=== PATIENT | female | born 1965 | race Caucasian/White ===

== ENCOUNTER 2019-11-05 12:17 | Outpatient (CLI) | payer BC, SELFPAY ==
--- NOTE | ~2019-11-05 | CT_ITS ---
EXAMINATION: CT lung screening DATE: 11/05/2019 12:52 INDICATION: Personal history of tobacco dependence, current smoker with 37 pack year history TECHNIQUE: Computed tomography (CT) of the chest was performed without intravenous contrast. The dose -length product (DLP) was 239.33 mGy-cm. Automated exposure control and iterative reconstruction tech [employer] were employed. COMPARISON: None FINDINGS: There is a 2 mm nodule of the right middle lobe on image 50. There is a 5 mm nodule of the right lower lobe on image 74. The lungs are free of focal airspace opacities. There is no pleural eff usion or pneumothorax. No pathologically enlarged thoracic lymph nodes are identified. The heart size is normal. There is mild emphysema. There is moderate thoracic spondylosis. IMPRESSION: 1. Lung-RADS category 2: Benign appearance or behavior. Continue annual screening with noncontrast lo w-dose chest CT in 12 months. Reviewed, dictated and finalized at location A. IMPRESSION: 1. Lung-RADS category 2: Benign appearance or behavior. Continue annual screeni ng with noncontrast low-dose chest CT in 12 months.
== END 2019-11-05 12:18 | disposition home or self-care (01) ==
LOC: CHSIMG 12:19
PROVIDERS: PCP Internal Medicine; Visit Provider Internal Medicine
DX: Z12.2 Encounter for screening for malignant neoplasm of respiratory organs (principal); Z87.891 Personal history of nicotine dependence
CPT/HCPCS: G0297

== ENCOUNTER 2019-11-22 00:17 | Outpatient (CLI) | payer BC, SELFPAY ==
[2019-11-22 17:01] LABS: SARS-CoV-2 RNA PCR Negative
== END 2019-11-22 00:18 | disposition home or self-care (01) ==
LOC: ANHCOVIDDT 00:17
PROVIDERS: PCP Internal Medicine; Visit Provider Surgery
DX: Z01.818 Encounter for other preprocedural examination (principal); Z11.59 Encounter for screening for other viral diseases
CPT/HCPCS: 87635; C9803; U0003

== ENCOUNTER 2019-11-24 01:24 | Day surgery (SDC) | payer BC, SELFPAY ==
[2019-11-17 10:58] VITALS: BMI 42.5
--- NOTE | 2019-11-24 08:39 | PM.HPGS ---
History of Present Illness History of Present Illness Consent: Risks, benefits, and alternatives of colonoscopy with possible biopsy or polypectomyhave been discussed and questions answered. Patient agrees to proceed with procedure. Chief complaint: Neoplasm Screening/ Hx Colon Polyps Narrative: Maxine Watson is a 54 year old femaleWith the patient of Dr. Abrams in [place]. She last had a colonoscopy in 2016 and was noted to a villous adenoma removed. It is time for repeat colonoscopy and he is asked her to do this periodically over the last year but she has refused. She was also offered a cold our tests a.m. not sure if this was performed or not. Will ask her today. Review of Systems Review of Systems: Narrative: Has had unintentional weight gain of about 40 lb over the last year Constitutional: Constitutional: Reports no additional constitutional complaints, Reports fatigue and Denies malaise Eyes: Eyes: Denies change in vision and Denies loss of vision ENT: Reports Normal hearing present, Denies change in voice, Denies dizziness, Denies hoarseness and Denies sore throat Cardiovascular: Cardiovascular: Denies chest pain, Denies leg edema and Denies dyspnea Comments: chronic hypertension on medications Respiratory: Respiratory: Denies cough, Denies dyspnea and Denies wheezing Gastrointestinal: Gastrointestinal: Denies hematochezia, Denies change in bowel habits, Denies change in stool character and Denies heartburn Comments: known history of previous colonic polyps last colonoscopy 2015. patient could not remember where in the colon the polyp was. She had her last colonoscopy in [place] [address] Orellana in 2016 and that was when a polyp was removed. Genitourinary: Genitourinary: Denies urinary frequency and Reports urinary incontinence ( mild dribbling postvoid) Comments: known microscopic hematuria Neurologic: Reports Normal hearing present, Denies confusion, Denies dizziness, Denies loss of vision, Denies memory loss and Denies seizure-like activity Comments: essential tremor Psychiatric: Psychiatric: Denies confusion, Denies depression and Denies memory loss Endocrine: Endocrine: Denies cold intolerance and Reports fatigue Comments: Disthymic disorder. vitamin-D deficiency impaired fasting glucose, pre diabetes Hematologic/Lymphatic: Hematologic/Lymphatic: Denies easy bleeding and Denies easy bruising Allergic/Immunologic: Allergic/Immunologic: Denies wheezing PMFSH Past Medical History Medical History (Updated 11/24/19 @ 11:07 by Kingsley Robins MD) Anxiety HTN (hypertension) Morbid obesity (Unknown) Personal history of colonic polyps (~2016) Surgical History Surgical History (Updated 11/24/19 @ 10:46 by Delroy Luke MD) Hx of tonsillectomy Social History Social History (Updated 11/24/19 @ 10:46 by Delroy Luke MD) Smoking status: Current every day smoker Meds Home Medications and Allergies Home Medications Medication Instructions Recorded Confirmed Type calcitriol 0.25 mcg/kg PO DAILY 11/17/19 11/17/19 History chlordiazepoxide HCl 25 mg PO Q4-6H PRN 11/17/19 11/17/19 History escitalopram oxalate 20 mg PO DAILY 11/17/19 11/17/19 History estradiol-norethindrone acet 1 tablet PO DAILY 11/17/19 11/17/19 History [Amabelz] lisinopril-hydrochlorothiazide 1 tablet PO DAILY 11/17/19 11/17/19 History naltrexone 1 mg PO DAILY 11/17/19 11/17/19 History omeprazole 40 mg PO DAILY 11/17/19 11/17/19 History valacyclovir 500 mg PO DAILY 11/17/19 11/17/19 History Allergies Allergy/AdvReac Type Severity Reaction Status Date / Time No Known Allergies Allergy Mild Unverified 11/24/19 10:18 Exam Narrative: Exam Narrative: 54-year-old morbidly obese white female Const: General: no acute distress Nutritional Appearance: well nourished Orientation/consciousness: patient oriented x3 and No confusion Limitations: no limitations HENMT: Head: normal to inspection, normocepha
[2019-11-24] MEDS: LACTATED RINGERS 1,000 ML 150 ML IV CONT (10:20)
--- NOTE | 2019-11-24 10:43 | WPDANESEPPF ---
Anes - Initial Pre Proc Eval Procedure: Operation Date: 11/24/19 12:30 Proposed Procedures p Screening Colonoscopy - Kingsley Robins MD Date/Time: 11/24/19 10:43 Surgeon: Kingsley Robins MD Pre Op Diagnosis: Neoplasm Screening/ Hx Colon Polyps Patient Data Age: 54 Gender: F Height: 5 ft 5 in Weight: 111.3 kg Allergies Allergy/AdvReac Type Severity Reaction Status Date / Time No Known Allergies Allergy Mild Unverified 11/24/19 10:18 Home Medications Medication Instructions Recorded Confirmed Type calcitriol 0.25 mcg/kg PO DAILY 11/17/19 11/17/19 History chlordiazepoxide HCl 25 mg PO Q4-6H PRN 11/17/19 11/17/19 History escitalopram oxalate 20 mg PO DAILY 11/17/19 11/17/19 History estradiol-norethindrone acet 1 tablet PO DAILY 11/17/19 11/17/19 History [Amabelz] lisinopril-hydrochlorothiazide 1 tablet PO DAILY 11/17/19 11/17/19 History naltrexone 1 mg PO DAILY 11/17/19 11/17/19 History omeprazole 40 mg PO DAILY 11/17/19 11/17/19 History valacyclovir 500 mg PO DAILY 11/17/19 11/17/19 History Patient hx anesthesia problems: none Family hx anesthesia problems: none [facility] Past Medical History Medical History (Updated 11/24/19 @ 10:46 by Delroy Luke MD) Anxiety HTN (hypertension) Morbid obesity Surgical History Surgical History (Updated 11/24/19 @ 10:46 by Delroy Luke MD) Hx of tonsillectomy Social History Social History (Updated 11/24/19 @ 10:46 by Delroy Luke MD) Smoking status: Current every day smoker Anes - Eval Final PreProcedure Day of Procedure 11/24/19 10:43 Patient weight: morbidly obese Heart: regular rate and rhythm Lungs: clear to auscultation Airway: Mallampati scale class II Neurological: alert and oriented Last oral intake: >/= 8 hours ASA classification: III Emergent: no Anesthetic plan: proceed Anesthesia type and monitoring: general GIVS and standard monitoring Informed Consent: The patient's anesthetic plan and its attendant risks and benefits were discussed with the patient/family/POA. Questions were solicited and answers provided to the satisfaction of the patient/family/POA.
[2019-11-24 14:23] VITALS: BP 138/91; PULSE 85; RESP 26; TEMP 37; O2SAT 100
[2019-11-24 14:33] VITALS: BP 148/71; PULSE 77; RESP 16; O2SAT 99
[2019-11-24 14:43] VITALS: BP 165/96; PULSE 77; RESP 18; O2SAT 100
[2019-11-24 14:53] VITALS: BP 162/90; PULSE 86; RESP 20; O2SAT 100
== END 2019-11-24 15:17 | disposition home or self-care (01) ==
PROVIDERS: PCP Internal Medicine; Visit Provider Surgery
PROC: 0DJD8ZZ Inspection of Lower Intestinal Tract, Via Natural or Artificial Opening Endoscopic (ICD-10-PCS; CPT 45378; principal; 2019-11-24 12:30)
DX: Z12.11 Encounter for screening for malignant neoplasm of colon (principal); K63.5 Polyp of colon; K64.8 Other hemorrhoids; I10 Essential (primary) hypertension; F41.9 Anxiety disorder, unspecified; E66.01 Morbid (severe) obesity due to excess calories; Z68.41 Body mass index [BMI] 40.0-44.9, adult; F17.200 Nicotine dependence, unspecified, uncomplicated
CPT/HCPCS: 45380; 88305; J2704; J7120

== ENCOUNTER 2019-12-03 11:30 | Outpatient (CLI) | payer BC, SELFPAY ==
--- NOTE | ~2019-12-03 | MM_ITS ---
EXAMINATION: MM screening catrina BI w skylar HISTORY: Screening mammogram TECHNIQUE: Craniocaudal and mediolateral oblique 3-D tomosynthesis images were obtained and synthetic 2-D images were generated. CAD analysis was submitted and interpreted. COMPARISON: 07/02/2018 diagnostic right digital mammogram and limited right breast ultrasound 04/23/2018, 04/03/2017 bilateral digital screening mammogram examinations BREAST PARENCHYMAL COMPOSITION: There are scattered areas of fibroglandular density. FINDINGS: There is a chronic stable obscured opacity in the lower mid right breast. Since 04/23/2018 there is a lower outer quadrant new approximately 5 mm opacity. Diagnostic right mammogram and right breast ultrasound examination are recommended. Otherwise there is no evidence of suspicious mass, calcification, or architectural distortion to sugg est malignancy in either breast. There has been no suspicious interval change. IMPRESSION: 1. New 5 mm opacity in the lower outer quadrant of right breast at mid depth 2. Diagnostic right mammogram and right breast ultrasound examination are recommended. BI-RADS Category 0: Incomplete: Needs additional imaging evaluation. Reviewed, dictated and finalized at location A. IMPRESSION: 1. New 5 mm opacity in the lower outer quadrant of right breast at mid depth 2. Diagnostic right mammogram and right breast ultrasound examination are recom mended. BI-RADS Category 0: Incomplete: Needs additional imaging evaluation.
== END 2019-12-03 11:31 | disposition home or self-care (01) ==
PROVIDERS: PCP Internal Medicine; Visit Provider Obstetrics & Gynecology
DX: Z12.31 Encounter for screening mammogram for malignant neoplasm of breast (principal)
CPT/HCPCS: 77063; 77067

== ENCOUNTER 2019-12-16 08:45 | Outpatient (CLI) | payer BC, SELFPAY ==
--- NOTE | ~2019-12-16 | MMUS_ITS ---
EXAMINATION: MM diagnostic catrina RT w skylar, US breast RT limited HISTORY: Right breast mass on screening mammogram TECHNIQUE: Additional 3-D tomosynthesis images of the right breast were performed and synthetic 2-D i mages were generated. Spot compression views are also obtained. CAD analysis was submitted and interp reted. High resolution limited right breast ultrasound was performed. COMPARISON: 12/03/2019, 07/02/2018, 04/23/2018, 04/03/2017 FINDINGS: MAMMOGRAPHIC FINDINGS: There is a 6 mm obscured, oval, equal density mass in the middle third of the breast 6 cm from the ni pple at the 7:00 location just anterior to a previously characterized mass. ULTRASOUND: There is a 6 mm x 4 mm oval, circumscribed, parallel, hypoechoic mass at the 7:00 location 2 cm from the nipple with no posterior features or internal vascularity corresponding to the mammographic findi ng in question. There appears to be subtle central echogenicity suggestive of an intramammary lymph n ode. When compared to the prior ultrasound, this appears to have been present but is slightly more pr ominent on the current examination than the comparison. Also seen is a stable 11 mm x 6 mm complex cy stic and solid mass at the 6:00 location 2 cm from the nipple with the appearance of clustered microc ysts. IMPRESSION: 1. Likely intramammary lymph node of the lower-outer right breast corresponding to the mammographic f inding in question. 2. Recommend 6 month follow-up right diagnostic mammogram and ultrasound. BI-RADS category 3, probably benign findings. Reviewed, dictated and finalized at location A. IMPRESSION: 1. Likely intramammary lymph node of the lower-outer right breast corresponding to the mammographic finding in question. 2. Recommend 6 month follow-up right diagnostic mammogram and ultrasound. BI-RADS category 3, probably benign findings.
== END 2019-12-16 08:46 | disposition home or self-care (01) ==
PROVIDERS: PCP Internal Medicine; Referring Provider Obstetrics & Gynecology; Visit Provider Internal Medicine
DX: R92.8 Other abnormal and inconclusive findings on diagnostic imaging of breast (principal)
CPT/HCPCS: 76642; 77061; 77065; G0279

== ENCOUNTER 2020-04-27 15:20 | Outpatient (CLI) | payer BC, SELFPAY ==
--- NOTE | ~2020-04-27 | XR_ITS ---
XR ankle LT min 3V DATE: 04/27/2020 15:42 INDICATION: Left ankle pain TECHNIQUE: 4 views COMPARISON: The 11/21/2011 left ankle radiographs are not available, but the available radiographic re port indicates oblique fracture of the distal fibular metaphysis FINDINGS: There is old fracture deformity of the distal fibula. There is osteoarthritic change including joint space narrowing and spurring at the tibiotalar joint. There is very prominent plantar and minimal posterior calcaneal enthesopathy. No periostitis or erosi ve change is noted. Pes planus. No recent fracture or dislocation. IMPRESSION: Old fracture deformity of the distal fibula Osteoarthritis at the tibiotalar joint Calcaneal enthesopathy Pes planus Reviewed, dictated and finalized at location B. BRUSHER MACHINE
== END 2020-04-27 15:21 | disposition home or self-care (01) ==
PROVIDERS: PCP Internal Medicine; Visit Provider Internal Medicine
DX: M25.572 Pain in left ankle and joints of left foot (principal)
CPT/HCPCS: 73610

== ENCOUNTER 2020-06-15 09:59 | Outpatient (CLI) | payer BC, SELFPAY ==
--- NOTE | ~2020-06-15 | CT_ITS ---
EXAMINATION: CT chest wo con DATE: 06/15/2020 10:33 INDICATION: Pulmonary nodule follow-up. Chronic shortness of breath and cough. Smoker. TECHNIQUE: Computed tomography (CT) of the chest was performed without intravenous contrast. Automate d exposure control and iterative reconstruction technique were employed. Exam dose: 190.55 mGy-cm to real exam DLP. COMPARISON: 11/05/2019 CT lung screening FINDINGS: Normal heart size. No pericardial or pleural effusion. No hilar or mediastinal mass lesion or lymphadenopathy. No thoracic aortic aneurysm. Stable 5-6 mm nodular density in the medial right lower lobe (series 4 image 70). No interval pulmonary mass lesion. No pulmonary infiltrate or consolidation. Minimal atelectasis in t he lower lung zones. Normal morphology of the adrenal glands. No suspicious osteolytic or osteoblastic lesions. Degenerative changes of the thoracic spine. IMPRESSION: Stable 5-6 mm right lower lobe nodular density since 11/05/[address] test follow-up Reviewed, dictated and finalized at Location A. Reviewed, dictated and finalized at location B. OLOGY TEACHER
== END 2020-06-15 10:00 | disposition home or self-care (01) ==
LOC: CHSIMG 10:01
PROVIDERS: PCP Internal Medicine; Visit Provider Internal Medicine
DX: R91.1 Solitary pulmonary nodule (principal)
CPT/HCPCS: 71250

== ENCOUNTER 2020-07-28 09:58 | Outpatient (CLI) | payer BC, SELFPAY ==
--- NOTE | ~2020-07-28 | MMUS_ITS ---
EXAMINATION: MM diagnostic catrina RT w skylar, US breast RT complete HISTORY: Follow-up right breast masses. TECHNIQUE: Additional 3-D tomosynthesis images of the right breast were performed and synthetic 2-D i mages were generated. CAD analysis was submitted and interpreted. High resolution complete right ketan st ultrasound was performed. COMPARISON: Comparison to multiple prior studies sequentially, with oldest reviewed study dated 01/30. BREAST PARENCHYMAL COMPOSITION: Breast composed of scattered areas of fibroglandular density. FINDINGS: MAMMOGRAPHIC FINDINGS: There are multiple small right breast masses, largest located in the lower outer quadrant of the righ t breast measuring 7 mm. No suspicious architectural distortion or abnormal cluster of calcifications . ULTRASOUND: Complete right breast ultrasound: There are multiple simple and complicated cysts of the right breast. There is a cluster of microcysts at 6:00, 2 cm from the nipple measuring 11 mm in aggregate. There is a 7 mm complicated cyst at 7:00 , 2 cm from the nipple, likely corresponding to the dominant mammographic mass. There is an oval hypo echoic mass at 9:00, 3 cm from the nipple with echogenic center, possibly an intramammary lymph node measuring 5 mm. There is an oval hypoechoic mass measuring 5 mm at 9:00, 3 cm from the nipple, most l ikely complicated cysts. At 11:00, 3 cm from the nipple, there is an oval hypoechoic mass with parall el orientation, no posterior features or internal vascularity measuring 8 mm, possibly cluster of ted rocyst IMPRESSION: 1. Probable benign right breast masses identified by ultrasound and mammogram. 2. Recommend 6 month follow-up diagnostic right mammogram and ultrasound. BI-RADS category 3, probably benign findings. Reviewed, dictated and finalized at location A. INE RADIO OPERATOR IMPRESSION: 1. Probable benign right breast masses identified by ultrasound and mammogram. 2. Recommend 6 month follow-up diagnostic right mammogram and ultrasound. BI-RADS category 3, probably benign findings.
== END 2020-07-28 09:59 | disposition home or self-care (01) ==
PROVIDERS: PCP Internal Medicine; Visit Provider Internal Medicine
DX: R92.8 Other abnormal and inconclusive findings on diagnostic imaging of breast (principal)
CPT/HCPCS: 76641; 77061; 77065; G0279

== ENCOUNTER 2020-08-24 13:07 | Outpatient (CLI) | payer BC, SELFPAY ==
--- NOTE | ~2020-08-24 | XR_ITS ---
EXAMINATION: XR lumbar spine 2-3V EXAM DATE: 08/24/2020 13:34 INDICATION: Low back pain, symptoms of months. TECHNIQUE: Lumber spine frontal, lateral, lateral L5-S1 projections for interpretation. Comparison is made to prior examination from 05/09/2007 MR. FINDINGS: Mild disc disease at L4-5, mild to moderate at the other lumbar levels. The vertebral juan j s are aligned in the AP dimension. Minimal thoracolumbar levoscoliosis. There is bulky mid and lower thoracic facet arthropathy. Small endplate osteophytes. Vertebral body heights relatively well-mainta ined. No endplate erosive change. Sacrum, sacroiliac joints, sacral arcuate lines are intact. Paraspi nal soft tissue is unremarkable. IMPRESSION: 1. Advanced lumbar facet arthropathy. 2. Mild to moderate disc disease. Reviewed, dictated and finalized at location A.
--- NOTE | ~2020-08-24 | XR_ITS ---
EXAMINATION: XR knee RT 3V DATE: 08/24/2020 13:35 INDICATION: Right knee pain. TECHNIQUE: 3 views of right knee were obtained. COMPARISON: None. FINDINGS: Bone alignment is normal. No fracture. There is mild osteoarthritis of medial and patellofe moral compartments characterized by tiny marginal osteophytes. No knee joint effusion. IMPRESSION: 1. Mild right knee osteoarthritis. Reviewed, dictated and finalized at location A.
== END 2020-08-24 13:08 | disposition home or self-care (01) ==
LOC: CHSIMG 13:08
PROVIDERS: PCP Internal Medicine; Visit Provider Nurse Practitioner Family
DX: M25.561 Pain in right knee (principal); M54.5 Low back pain
CPT/HCPCS: 72100; 73562

== ENCOUNTER 2020-09-07 14:13 | Outpatient (RCR) | payer BC, SELFPAY ==
--- NOTE | 2020-09-07 16:19 | PTOPEVAL ---
Thank you for referring Maxine Watson to [facility].? The patient is scheduled to be seen for therapy? __2__x/week for 12 visits. Please review, sign, date and return this plan of care JESI. I agree with and certify that the following plan of care is medically necessary. Referring Physician Date Admitting Provider: Attending Provider: Arlette Colby MD Referring Provider: Hardy Gayle DPM *PT Outpatient Evaluation Start: 09/07/20 14:58 Freq: Status: Active Protocol: Document 09/07/20 14:58 EMIL (Rec: 09/07/20 16:18 EMIL [email or web address]) Therapy Assessment Status Assessment Status Assessment Status Evaluation Outpatient Past Medical History Neurological History Hx Neurological Disorders No Significant History Cardiovascular History Hx Hypertension Yes Respiratory History Hx Chronic Obstructive Pulmonary Disease Yes (COPD) Gastrointestinal History Hx Polyps Yes Genitourinary History Hx Genitourinary Disorders No Significant History Musculoskeletal History Hx Orthopedic Surgery Yes: BACK SURGERY 2005 Hx Other Musculoskeletal Disorders Yes: JAW SURGERY WITH WIRES Hematological History Hx Hematological Disorders No Significant History Endocrine History Hx Endocrine Disorders No Significant History HEENT History Hx HEENT Disorders No Significant History Integumentary History Hx Skin Disorders No Significant History Reproductive History Hx Post Menopausal Yes Psychosocial History Hx Anxiety Yes Hx Depression Yes Pain History History of Any Previous or Ongoing No Significant History Instance of Pain Anesthesia History Hx Anesthesia Reactions No Significant History Evaluation Information Problem Diagnosis right posterior knee pain, plantar fascitis bilateral Onset 03/09/20 Subjective Information Pt. reports that she has been Query Text:As Reported By Patient/ experinecing bilateral foot Family pain since being taken off work in August of 2019. Pt. reports that that she had an injection in her feet in June which helped. She feels the injection is beginning to wear off and pain is returning. He states that she is also experiencing pain in the back of the knee. She reports that she had xray which revealed arthritis. She
== END 2020-10-06 16:41 | disposition home or self-care (01) ==
LOC: CHSPT 14:13
PROVIDERS: PCP Internal Medicine; Referring Provider Podiatrist; Visit Provider Internal Medicine
DX: M72.2 Plantar fascial fibromatosis (principal); M25.561 Pain in right knee
CPT/HCPCS: 97014; 97110; 97112; 97140; 97161; 97530; G0283

== ENCOUNTER 2021-03-31 13:24 | Outpatient (CLI) | payer BC, SELFPAY ==
[2021-03-31 14:39] LABS: SARS-CoV-2 RNA PCR Negative (Negative)
== END 2021-03-31 13:25 | disposition home or self-care (01) ==
LOC: CHSLAB 13:26
PROVIDERS: PCP Internal Medicine; Visit Provider Nurse Practitioner Family
DX: Z20.822 Contact with and (suspected) exposure to COVID-19 (principal); R19.7 Diarrhea, unspecified
CPT/HCPCS: C9803; U0003; U0005

== ENCOUNTER 2021-09-13 16:15 | Outpatient (CLI) | payer BC, SELFPAY ==
[2021-09-13 17:15] LABS: Influenza A QL RT-PCR Positive (Negative); Influenza B QL RT-PCR Negative (Negative); SARS-CoV-2 RNA PCR Negative (Negative)
== END 2021-09-13 16:16 | disposition home or self-care (01) ==
LOC: CHSLAB 16:17
PROVIDERS: PCP Internal Medicine; Visit Provider Nurse Practitioner Family
DX: J06.9 Acute upper respiratory infection, unspecified (principal); R50.9 Fever, unspecified; R52 Pain, unspecified; Z20.822 Contact with and (suspected) exposure to COVID-19
CPT/HCPCS: 87502; C9803; U0003; U0005

== ENCOUNTER 2021-09-17 11:18 | Outpatient (CLI) | payer BC, SELFPAY ==
--- NOTE | ~2021-09-17 | XR_ITS ---
EXAMINATION: XR chest 2V Exam Date/Time: 09/17/2021 11:30 CDT CLINICAL HISTORY: CHEST CONGESTION/COUGH tested pos for the flu Comparison: 04/09/2019. RESULT: Lines, tubes, and devices: None. Lungs and pleura: Clear. Chronic posterior costophrenic angle blunting. Cardiomediastinal silhouette: Stable cardiomediastinal silhouette. Other: No acute osseous or upper abdominal finding. IMPRESSION: No acute cardiopulmonary process. Reviewed, dictated and finalized at location K.
[2021-09-17 11:36] LABS: Basophils Absolute Auto 0.05 K/mm3 (0.00-0.10); Basophils Percent Auto 0.5 % (0.0-1.0); Eosinophils Percent Auto 1.1 % (1.0-6.0); Hematocrit 44.9 % (35.0-49.0); Hemoglobin 14.5 g/dL (12.0-15.0); Immature Granulocyte Absolute 0.03 K/mm3 (0.00-0.00); Immature Granulocyte Percent A 0.3 % (0.0-0.0); Lymphocytes Absolute Auto 3.33 K/mm3 (1.10-4.50); Lymphocytes Percent Auto 35.7 % (18.0-42.0); Mean Corpuscular HGB Conc 32.3 g/dL (32.0-36.0); Mean Corpuscular Hemoglobin 31.7 pg (27.0-31.0); Mean Platelet Volume 9.4 fl (9.2-11.8); Monocytes Absolute Auto 0.62 K/mm3 (0.10-0.90); Monocytes Percent Auto 6.6 % (2.0-11.0); Neutrophils Absolute Auto 5.2 K/mm3 (1.7-7.2); Neutrophils Percent Auto 55.8 % (50.0-70.0); Platelet Count Result 245 K/mm3 (150-420); Red Blood Count 4.58 M/mm3 (4.20-5.40); Red Cell Distribution Width 13.9 % (11.6-14.4); White Blood Count 9.3 K/mm3 (4.8-10.8)
[2021-09-17 12:00] LABS: Alanine Aminotransferase 25 U/L (14-59); Albumin Level 3.8 g/dL (3.4-5.0); Alkaline Phosphatase 92 U/L (46-116); Anion Gap 7 mmol/L (8-16); Aspartate Amino Transferase 15 U/L (15-37); Bilirubin,Total 0.2 mg/dL (0.00-1.00); Blood Urea Nitrogen 19 mg/dL (7-18); Calcium 8.9 mg/dL (8.5-10.1); Carbon Dioxide 30 mmol/L (21-32); Chloride 103 mmol/L (98-108); Estimated Glomerular Filt Rate > 60; Glucose 107 mg/dL (70-99); Osmolality Calculated 292 mOsm/kg (285-295); Potassium 4.6 mmol/L (3.5-5.1); Sodium 140 mmol/L (136-145); Total Protein 6.8 g/dL (6.4-8.2)
== END 2021-09-17 11:19 | disposition home or self-care (01) ==
LOC: CHSLAB 11:21
PROVIDERS: PCP Internal Medicine; Visit Provider Nurse Practitioner Family
DX: R05.9 Cough, unspecified (principal); R09.89 Other specified symptoms and signs involving the circulatory and respiratory systems
CPT/HCPCS: 36415; 71046; 80053; 85025

== ENCOUNTER 2022-03-29 14:58 | Outpatient (RCR) | payer OTHER, SELFPAY ==
--- NOTE | 2022-03-29 16:26 | PTOPEVAL1 ---
Assessment and note entered by JT File, PT Evaluation Information Assessment Status Evaluation Diagnosis fracture of upper and lower end of fibula Onset 01/05/22 Subjective Information patient reports she broke her ankle while at work on 01/05/22. she reports she tripped over a customers foot. she reports she had a fracture of the outside of her R ankle. she reports she has been strugglign with work comp to get into therapy . she reports she did not have surgery. she reports she was in a boot for roughly 8-9 weeks. she reports her goal is to return to full duty work. 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 Reported Pain Level Pain Score 3: Self Report Assessment PT Clinical Summary mrs. encinas is a 56 yo woman who presents to skilled PT services for rehab following a fall and fracture at work. she is currently unable to return to work due to weakness, pain, decreased rom, and inability to perform long hours of standing and walking. she would do well to attend skilled PT to improve her objective/functional deficits and progress towards a return to full duty work performance. Plan of Care Interventions Electrical Stimulation,Gait Training,Hot Pack/Cold Pack,Manual Therapy,Neuro Re-education,Patient/ Caregiver Educati,Therapeutic Activities, Therapeutic Exercise PT Services Indicated Yes Treatment Frequency and 2x weekly for 7 visits Duration These treatments will address the objective and functional deficits as defined above. The patient will be advanced safely and appropriately in order for the patient to progress towards his/her prior level of function. Additional exercises will be introduced and as well as a comprehensive home exercise program upon discharge, if needed, ?to ensure carryover of functional gains achieved in the clinic. This treatment plan has been reviewed and agreement upon by the patient.
--- NOTE | 2022-04-18 15:03 | PTOPPROG ---
Assessment and note entered by Josseline Luke DPT Evaluation Information Assessment Status Progress Diagnosis fracture of upper and lower end of fibula Onset 01/05/22 Subjective Information Pt reports that pain is at about a 3/10 today. Her ankle continues to bother her mostly with upright activities such as walking and standing for long periods. In regards to dizziness after last session, she reports she has not had a spell since and has been more careful. She has her next follow-up on 04/23. She notes that she has been having increased frequency of numbness of her whole foot since her fracture. Assessment PT Clinical Summary Pt presents to physical therapy with significant improvements in pain, ROM, strength, and gait pattern since her initial evaluation. She has been walking more with her cane but has not transitioned yet to time study observer cane usage with ambulation. She will benefit from additional skilled PT to facilitate symptom relief, improve the aforementioned impairments, and return to work and full functional/recreational activities. Plan of Care PT Services Indicated Yes Treatment Frequency and 2x week for 5 visits Duration These treatments will address the objective and functional deficits as defined above. The patient will be advanced safely and appropriately in order for the patient to progress towards his/her prior level of function. Additional exercises will be introduced and as well as a comprehensive home exercise program upon discharge, if needed, ?to ensure carryover of functional gains achieved in the clinic. This treatment plan has been reviewed and agreement upon by the patient.
--- NOTE | 2022-05-09 14:49 | PTOPPROG ---
Assessment and note entered by Josseline Luke DPT Evaluation Information Assessment Status Progress Diagnosis fracture of upper and lower end of fibula Onset 01/05/22 Subjective Information Pt reports that she had a fall earlier today. She fell onto both of her knees and had a hard time getting back up. She reports continued high levels of pain in her back, hip, and ankle. She says she is concerned for work as she has only been able to stand for about 1 hour at a time before needing a break. She is concerned for her ability to stand for 8 hours at work. She sees her MD next on Friday, 05/13. Assessment PT Clinical Summary Pt presents to physical therapy with continued signficant improvements in ankle strength, range of motion, and gait pattern since her most recent evaluation. She has fully transitioned to gait without an AD but still is limited in gait due to pain. Due to her continued benefits with PT but difficulty still with standing and walking as needed for work, she is likely to benefit from 4 additional skilled PT visits at once a week to further facilitate symptom relief and improve gait pattern, strength, range of motion, and tolerance to standing as needed for returning to work. Plan of Care PT Services Indicated Yes Treatment Frequency and 1x week for 4 visits Duration These treatments will address the objective and functional deficits as defined above. The patient will be advanced safely and appropriately in order for the patient to progress towards his/her prior level of function. Additional exercises will be introduced and as well as a comprehensive home exercise program upon discharge, if needed, ?to ensure carryover of functional gains achieved in the clinic. This treatment plan has been reviewed and agreement upon by the patient.
== END 2022-06-12 23:59 | disposition home or self-care (01) ==
LOC: CHSPT 14:58
PROVIDERS: Visit Provider Nurse Practitioner
DX: S82.831A Other fracture of upper and lower end of right fibula, initial encounter for closed fracture (principal)
CPT/HCPCS: 97016; 97110; 97116; 97140; 97161; 97530

== ENCOUNTER 2022-06-26 18:57 | Outpatient (CLI) | payer BC, SELFPAY ==
--- NOTE | ~2022-06-26 | XR_ITS ---
EXAMINATION: XR chest 2V DATE: 06/26/2022 19:17 INDICATION: Cough and congestion. TECHNIQUE: Frontal and lateral views of the chest were obtained. COMPARISON: Chest 2 views 09/17/2021 FINDINGS: There is mild atelectasis at left lung base. No pleural effusion or pneumothorax. The heart size is normal. There is mild chronic anterior wedging of L1 vertebral body. IMPRESSION: 1. Mild atelectasis at left lung base. Reviewed, dictated and finalized at location A. 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
== END 2022-06-26 18:58 | disposition home or self-care (01) ==
LOC: CHSIMG 19:00
PROVIDERS: PCP Internal Medicine; Visit Provider Internal Medicine
DX: R05.9 Cough, unspecified (principal); R09.89 Other specified symptoms and signs involving the circulatory and respiratory systems; J98.11 Atelectasis
CPT/HCPCS: 71046

== ENCOUNTER 2022-09-06 13:04 | Outpatient (CLI) | payer BC, SELFPAY ==
--- NOTE | ~2022-09-06 | MM_ITS ---
EXAMINATION: MM screening [facility] BI w [facility] HISTORY: Screening TECHNIQUE: Craniocaudal and mediolateral oblique 3-D tomosynthesis images were obtained and synthetic 2-D images were generated. CAD analysis was submitted and interpreted. COMPARISON: Comparison to multiple prior studies sequentially, with oldest reviewed study dated 04/09. BREAST PARENCHYMAL COMPOSITION: There are scattered areas of fibroglandular density. FINDINGS: There is no evidence of suspicious mass, calcification, or architectural distortion to sugg est malignancy in either breast. There has been no suspicious interval change. IMPRESSION: 1. No mammographic evidence of malignancy. 2. Recommend routine screening mammography in one year. BI-RADS Category 1: Negative Reviewed, dictated and finalized at location A.
== END 2022-09-06 13:05 | disposition home or self-care (01) ==
LOC: CHSIMG 13:05
PROVIDERS: PCP Internal Medicine; Visit Provider Internal Medicine
DX: Z12.31 Encounter for screening mammogram for malignant neoplasm of breast (principal)
CPT/HCPCS: 77063; 77067

== ENCOUNTER 2022-11-06 14:20 | Outpatient (RCR) | payer OTHER, SELFPAY ==
--- NOTE | 2022-11-06 15:50 | OPREHPOC ---
Outpatient Therapy Plan of Care This is a Multidisciplinary Plan of Care that may contain components documented by all disciplines (PT, OT, and ST.) PT Problem 1 PT Problem #1 Knowledge Deficit PT Goal 1 Goal The patient will be independent in a home exercise program for ankle stability and balance to continue after discharge from formal PT. Target Visit 8 PT Problem 2 PT Problem #2 Pain PT Goal 1 Goal The patient will report no greater than 3/10 right ankle pain with continuous standing/walking of 20 minutes during therapy session. Target Visit 8 PT Problem 3 PT Problem #3 Impaired Balance PT Goal 1 Goal The patient will improve her Tinetti balance scale score to at least 19 indicating a moderate fall risk rather than a high fall risk. Target Visit 8 PT Problem 4 PT Problem #4 Impaired Strength PT Goal 1 Goal Patient to perform 10 single leg heel raises indicating improved strength. Target Visit 8 PT Problem 5 PT Problem #5 Impaired Gait PT Goal 1 Goal Patient to improve gait to a distance of at least 600 ft with heel strike noted at initial contact. Target Visit 8
--- NOTE | 2022-11-06 15:50 | PTOPEVAL1 ---
Assessment and note entered by Yenifer Parker, PT Evaluation Information Assessment Status Evaluation Diagnosis R ankle pain, s/p R fibula fx Onset 01/05/22 Subjective Information Maxine Watson reports she fell on January 05, 2022 and fractured her fibula and tibia. She was in a wheelchair and walking boot for 2 months after the injury then completed 16 weeks of PT at this facility. 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 The MRI showed her fibula fx was not healed and she was given a bone stimulator. She then was referred to another doctor who wanted an updated CT scan. The CT scan confirmed the fibula fx was not healed so she has continued the bone stimulator and is on day 86 now. Her new doctor wanted her to go to PT again and reduced her work shift to 4 hours with a 15 minute break every 2 hours. 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 She has been able to make it through a 4 hour shift but has a lot of pain following her shifts. She notes she has difficulty with her balance as well but does not use a cane or walker anymore. She will see Dr. Zurita again on 12/05. Reported Pain Level Pain Score 4: Self Report Assessment PT Clinical Summary Maxine Watson presents with right lateral ankle pain that has persisted since sustaining a right tibia and fibula fractures on 01/05/22 when she fell at work. Recent imaging shows the fibula fracture is not fully healed. 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 She objectively demonstrates pain right ankle inversion AROM, decreased right > left ankle strength, decreased static and dynamic balance, and abnormal gait. Her Tinetti Balance score indicates she is a high fall risk. She will benefit from skilled PT to address these limitations and return her to her PLOF. Plan of Care Interventions Electrical Stimulation,Hot Pack/Cold Pack,Neuro Re -education,Patient/Caregiver Educati,Therapeutic Activities,Therapeutic Exercise PT Services Indicated Ye
--- NOTE | 2022-11-29 13:35 | OPREHPOC ---
Outpatient Therapy Plan of Care This is a Multidisciplinary Plan of Care that may contain components documented by all disciplines (PT, OT, and ST.) PT Problem 1 PT Problem #1 Knowledge Deficit PT Goal 1 Goal The patient will be independent in a home exercise program for ankle stability and balance to continue after discharge from formal PT. Target Visit 8 Progress Met PT Problem 2 PT Problem #2 Pain PT Goal 1 Goal The patient will report no greater than 3/10 right ankle pain with continuous standing/walking of 20 minutes during therapy session. Target Visit 8 Progress Met PT Problem 3 PT Problem #3 Impaired Balance PT Goal 1 Goal The patient will improve her Tinetti balance scale score to at least 19 indicating a moderate fall risk rather than a high fall risk. Target Visit 8 Progress Met PT Problem 4 PT Problem #4 Impaired Strength PT Goal 1 Goal Patient to perform 10 single leg heel raises indicating improved strength. Target Visit 8 Progress Met PT Problem 5 PT Problem #5 Impaired Gait PT Goal 1 Goal Patient to improve gait to a distance of at least 600 ft with heel strike noted at initial contact. Target Visit 8 Progress Met
--- NOTE | 2022-11-29 13:35 | PTOPDC ---
Assessment and note entered by Jil Nguyen DPT Evaluation Information Assessment Status Re-evaluation Diagnosis R ankle pain, s/p R fibula fx Onset 01/05/22 Subjective Information Patient reports she has noticed improvements but notices after a 4 hour shift she is sore. She reports since starting PT she has noticed an improvement in foot placemnet with walking and improved balance. Reported Pain Level Pain Score 2: Self Report Assessment PT Clinical Summary Patient was seen for 6 visits of skilled PT and made good progres towards all goals. She demonstrates improve balance and R ankle strength. She also reports ability to stand for longer periods of time. She is independent with HEP and will be discharged at this time. Plan of Care PT Services Indicated No
== END 2022-11-29 14:16 | disposition home or self-care (01) ==
LOC: CHSPT 14:20
PROVIDERS: PCP Internal Medicine
DX: M25.571 Pain in right ankle and joints of right foot (principal)
CPT/HCPCS: 97110; 97112; 97161

== ENCOUNTER → 2022-11-21 13:31 | Outpatient (CLI) | payer BC, SELFPAY ==
--- NOTE | ~2022-11-21 | US_ITS ---
EXAMINATION:US venous doppler LE LT INDICATION:Left calf swelling TECHNIQUE: Multiple grayscale, color flow and Doppler images of the left lower extremity deep venous systems were obtained and reviewed. COMPARISON:12/18/2011 FINDINGS: The common femoral, superficial femoral and popliteal veins demonstrate normal respiratory variation, augmentation and compressibility. Color flow is also seen within the posterior tibial, pe roneal, greater saphenous and profunda veins. IMPRESSION: 1: No lower extremity deep venous thrombosis. Reviewed, dictated and finalized at location L.
== END ==
PROVIDERS: PCP Internal Medicine; Visit Provider Internal Medicine
DX: M79.89 Other specified soft tissue disorders (principal)
CPT/HCPCS: 93971

== ENCOUNTER 2022-12-26 13:59 | Outpatient (CLI) | payer BC, SELFPAY ==
--- NOTE | ~2022-12-26 | XR_ITS ---
EXAMINATION: XR chest 2V Exam Date/Time: 12/26/2022 14:00 CDT HISTORY: No chest complaints/current smoker/COPD flair up [id number] Comparison: . RESULT: Lines, tubes, and devices: None. Lungs and pleura: Clear. Increased AP diameter, likely secondary to emphysematous change. Cardiomediastinal silhouette: Stable. Other: No acute osseous or upper abdominal finding. Exaggerated thoracic kyphosis. Mild chronic ante rior wedge deformity at L1. IMPRESSION: No acute cardiopulmonary process. Reviewed, dictated and finalized at location K.
== END 2022-12-26 14:00 | disposition home or self-care (01) ==
PROVIDERS: PCP Internal Medicine; Visit Provider Internal Medicine
DX: R05.9 Cough, unspecified (principal)
CPT/HCPCS: 71046

== ENCOUNTER 2023-05-20 15:38 | Outpatient (CLI) | payer BC, SELFPAY ==
--- NOTE | ~2023-05-20 | XR_ITS ---
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 RESULT: Lines, tubes, and devices: None. Lungs and pleura: No acute opacities. Increased AP diameter likely secondary to emphysematous change . Cardiomediastinal silhouette: Stable. Other: No acute osseous or upper abdominal finding. Stable mild anterior wedge deformity at L1. IMPRESSION: No acute cardiopulmonary process. Reviewed, dictated and finalized at location K. 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
[2023-05-20 15:55] LABS: Basophils Absolute Auto 0.06 K/mm3 (0.00-0.10); Basophils Percent Auto 0.3 % (0.0-1.0); Eosinophils Absolute Auto 0.04 K/mm3 (0.02-0.50); Eosinophils Percent Auto 0.2 % (1.0-6.0); Hematocrit 44.8 % (35.0-49.0); Hemoglobin 15.2 g/dL (12.0-15.0); Immature Granulocyte Absolute 0.25 K/mm3 (0.00-0.00); Immature Granulocyte Percent A 1.3 % (0.0-0.0); Lymphocytes Absolute Auto 3.86 K/mm3 (1.10-4.50); Lymphocytes Percent Auto 20.8 % (18.0-42.0); Mean Corpuscular HGB Conc 33.9 g/dL (32.0-36.0); Mean Corpuscular Hemoglobin 33.7 pg (27.0-31.0); Mean Corpuscular Volume 99.3 fL (78.0-102.0); Mean Platelet Volume 9.9 fl (9.2-11.8); Monocytes Absolute Auto 1.86 K/mm3 (0.10-0.90); Neutrophils Absolute Auto 12.5 K/mm3 (1.7-7.2); Neutrophils Percent Auto 67.4 % (50.0-70.0); Platelet Count Result 278 K/mm3 (150-420); Red Blood Count 4.51 M/mm3 (4.20-5.40); Red Cell Distribution Width 12.9 % (11.6-14.4); White Blood Count 18.6 K/mm3 (4.8-10.8)
[2023-05-20 16:09] LABS: Alanine Aminotransferase 33 U/L (14-59); Albumin Level 3.5 g/dL (3.4-5.0); Alkaline Phosphatase 61 U/L (46-116); Anion Gap 2 mmol/L (8-16); Aspartate Amino Transferase 17 U/L (15-37); Bilirubin,Total 0.2 mg/dL (0.00-1.00); Blood Urea Nitrogen 24 mg/dL (7-18); Calcium 10.4 mg/dL (8.5-10.1); Carbon Dioxide 35 mmol/L (21-32); Chloride 100 mmol/L (98-108); Estimated Glomerular Filt Rate 44; Glucose 82 mg/dL (70-99); Osmolality Calculated 287 mOsm/kg (285-295); Potassium 3.6 mmol/L (3.5-5.1); Sodium 137 mmol/L (136-145); Total Protein 7.5 g/dL (6.4-8.2)
== END 2023-05-20 15:39 | disposition home or self-care (01) ==
LOC: CHSLAB 15:41
PROVIDERS: PCP Internal Medicine; Visit Provider Internal Medicine
DX: R05.9 Cough, unspecified (principal); J06.9 Acute upper respiratory infection, unspecified
CPT/HCPCS: 36415; 71046; 80053; 85025